=== PATIENT | female | born 1965 | race Caucasian/White ===

== ENCOUNTER → 2016-09-24 | Outpatient (CLI) | payer BC ==
[~2016-09-24] VITALS: Ht 157.5 cm; Wt 73.0 kg
[~2016-09-24] MED LIST: ASPRIN PO; CENTRUM SILVER1 EAC4 PO; COZAAR25 MG PO; FAT BURNER; FLEXERIL5 MG PO; GARCINIA CAMBO1 EACH PO; LIPITOR20 MG PO; MULTIVITAMIN1 EAC2 PO; Macrobid PO; Percocet 5/325,Endoc PO; Protonix PO; RANITIDINE HCL150 M1 PO; RASPBERRY; RASPBERRY KETO100 MG PO; VENLAFAXINE HC150 M1 PO; VITAMIN E PO; ZANTAC150 MG PO; Zantac,Taladine PO
== END | disposition home or self-care (01) ==
LOC: AMB 11:51
DX: Z12.11 Encounter for screening for malignant neoplasm of colon (principal); K22.70 Barrett's esophagus without dysplasia; D12.3 Benign neoplasm of transverse colon; K30 Functional dyspepsia; K29.70 Gastritis, unspecified, without bleeding; K29.80 Duodenitis without bleeding; K20.9 Esophagitis, unspecified; K64.8 Other hemorrhoids; K21.9 Gastro-esophageal reflux disease without esophagitis; I10 Essential (primary) hypertension; Z85.41 Personal history of malignant neoplasm of cervix uteri; E78.5 Hyperlipidemia, unspecified; Z82.49 Family history of ischemic heart disease and other diseases of the circulatory system; Z80.1 Family history of malignant neoplasm of trachea, bronchus and lung; Z87.891 Personal history of nicotine dependence; Z88.0 Allergy status to penicillin; Z88.2 Allergy status to sulfonamides
CPT/HCPCS: 88305; J2250; J2405; J3010

== ENCOUNTER → 2017-03-11 | Outpatient (CLI) | payer BC | END | disposition home or self-care (01) | LOC: CDC 03-10 10:30 | DX: M79.642 Pain in left hand (principal); R22.32 Localized swelling, mass and lump, left upper limb; I45.10 Unspecified right bundle-branch block | CPT/HCPCS: 93000 ==

== ENCOUNTER → 2017-06-03 | Outpatient (CLI) | payer BC | END | disposition home or self-care (01) | LOC: RES 10:48 | DX: R05 Cough (principal) | CPT/HCPCS: 94060; 94726; 94729 ==